=== PATIENT | female | born 1965 | race African-American/Black ===

== ENCOUNTER 2017-04-20 10:47 | Emergency (ER) | payer MEDICAID ==
[~2017-04-20] VITALS: Ht 157.5 cm; Wt 73.0 kg
[~2017-04-20 10:47] MED LIST: VALS40TA4 PO
[2017-04-20] MEDS ORDERED: IBUPROFEN 600MG TABLET PO ONE (11:45)
[2017-04-20 12:12] VITALS: BP 145/89
== END 2017-04-20 15:00 | disposition home or self-care (01) ==
LOC: ER 14:44
DX: S46.911A Strain of unspecified muscle, fascia and tendon at shoulder and upper arm level, right arm, initial encounter (principal); M79.661 Pain in right lower leg; M54.9 Dorsalgia, unspecified; M54.2 Cervicalgia; V43.52XA Car driver injured in collision with other type car in traffic accident, initial encounter; Y93.89 Activity, other specified; Y92.414 Local residential or business street as the place of occurrence of the external cause; F12.90 Cannabis use, unspecified, uncomplicated; I10 Essential (primary) hypertension; K21.9 Gastro-esophageal reflux disease without esophagitis; Z90.710 Acquired absence of both cervix and uterus
CPT/HCPCS: 99283

== ENCOUNTER 2017-09-14 22:06 | Emergency (ER) | payer MEDICAID ==
[~2017-09-14] VITALS: Ht 160 cm; Wt 82.0 kg
[2017-09-14] MEDS ORDERED: MORPHINE SULFATE 4 MG/ML CPJ (NOT FOR IM USE) IV STA (23:03)
[2017-09-14] MEDS ORDERED: ONDANSETRON HCL 4MG/2ML VIAL IV STA (23:03)
[2017-09-14] MEDS ORDERED: LABETALOL HCL 20MG/4ML CARPUJECT IV ONE (23:15)
[2017-09-14] MEDS ORDERED: ASPIRIN 81MG TABLET PO ONE (23:15)
[2017-09-14] MEDS ORDERED: MORPHINE SULFATE 2 MG/ML CPJ (NOT FOR IM USE) IV STA (23:29)
[2017-09-14 23:50] LABS: BASOPHILS % 0.9 % (0.0-2.0); EOSINOPHILS % 1.1 % (0.0-5.0); HEMATOCRIT. 37.4 % (36.0-48.0); HEMOGLOBIN. 12.8 g/dL (12.0-16.0); LYMPHOCYTES % 62.2 % (20.0-50.0); MEAN CORPUSCULAR HEMOGLOBIN 31.3 pg (28.0-32.0); MEAN CORPUSCULAR VOLUME 91.5 fL (81.0-99.0); MEAN PLATELET VOLUME 9.9 fl (7.4-10.4); MONOCYTES % 6.7 % (2.0-8.0); NEUTROPHILS % 29.1 % (40.0-76.0); PLATELET 182 x1000/uL (130-400); RED BLOOD CELL COUNT 4.08 mill/uL (4.2-5.4); RED CELL DISTRIBUTION WIDTH 13.5 % (11.6-14.6)
[2017-09-15] LABS: D-DIMER < 0.19 mg/L FEU (<0.50); PROTHROMBIN TIME 10.1 sec (9.4-11.6)
[2017-09-15 00:14] LABS: CARBON DIOXIDE 21 mEq/L (21-32); CHLORIDE 112 mEq/L (98-107); ETHANOL BLOOD 160 mg/dL
[2017-09-15] MEDS ORDERED: CEFTRIAXONE 1 G PREMIX 50 ML IV ONE (00:15)
[2017-09-15] MEDS ORDERED: AZITHROMYCIN 500 MG in DEXT 5% WATER 250 ML IV ONE (00:15)
[2017-09-15 00:21] LABS: TROPONIN I < 0.02 ng/mL (0.00-0.04)
[2017-09-15 02:23] VITALS: BP 117/81
== END 2017-09-15 02:39 | disposition home or self-care (01) ==
LOC: ER 22:32 → SUPCPDRO 09-15 11:48
DX: I16.0 Hypertensive urgency (principal); I10 Essential (primary) hypertension; R07.9 Chest pain, unspecified; F10.10 Alcohol abuse, uncomplicated; F17.200 Nicotine dependence, unspecified, uncomplicated; F12.10 Cannabis abuse, uncomplicated; Z98.890 Other specified postprocedural states; Z90.710 Acquired absence of both cervix and uterus
CPT/HCPCS: 36415; 71010; 80053; 83605; 83690; 83880; 84484; 85025; 85379; 85610; 87040; 93005; 96365; 96366; 96368; 96375; 99285; G0482; J0456; J0696; J2270; J2405; J3490; Z7610; J7060

== ENCOUNTER 2020-09-12 17:36 | Emergency (ER) | payer MEDICAID, OTHER ==
[~2020-09-12] VITALS: Ht 165.1 cm; Wt 68.0 kg
[2020-09-12 17:41] VITALS: BP 152/91
[2020-09-12 19:13] LABS: CLARITY URINE CLEAR (CLEAR); COLOR URINE YELLOW (YELLOW); KETONES URINE NEGATIVE (NEGATIVE); LEUKOCYTE ESTERASE URINE TRACE (NEGATIVE); NITRITE URINE NEGATIVE (NEGATIVE); OCCULT BLOOD URINE TRACE (NEGATIVE); PH URINE 5.5 (4.5-8.0); PROTEIN URINE NEGATIVE (NEGATIVE); SPECIFIC GRAVITY URINE 1.021 (1.005-1.030)
[2020-09-12 19:13] LABS: BASOPHILS % 0.6 % (0.0-2.0); EOSINOPHILS % 0.9 % (0.0-5.0); HEMATOCRIT. 37.5 % (36.0-48.0); HEMOGLOBIN. 12.7 g/dL (12.0-16.0); LYMPHOCYTES % 54.3 % (20.0-50.0); MEAN CORPUSCULAR HEMOGLOBIN 31.2 pg (28.0-32.0); MEAN CORPUSCULAR VOLUME 92.2 fL (81.0-99.0); MEAN PLATELET VOLUME 9.4 fl (7.4-10.4); MONOCYTES % 6.7 % (2.0-8.0); NEUTROPHILS % 37.5 % (40.0-76.0); PLATELET 238 x1000/uL (130-400); RED BLOOD CELL COUNT 4.06 mill/uL (4.2-5.4); RED CELL DISTRIBUTION WIDTH 14.2 % (11.6-14.6)
[2020-09-12 19:14] LABS: CHLORIDE 110 mEq/L (98-107)
[2020-09-12] MEDS ORDERED: AZITHROMYCIN 500 MG TABLET PO ONE (19:45)
[2020-09-12] MEDS ORDERED: CEFTRIAXONE SODIUM 250 MG/VIAL IM ONE (19:45)
== END 2020-09-12 20:17 | disposition home or self-care (01) ==
LOC: ER 17:36
DX: R30.0 Dysuria (principal); F17.290 Nicotine dependence, other tobacco product, uncomplicated; I10 Essential (primary) hypertension; Z90.710 Acquired absence of both cervix and uterus
CPT/HCPCS: 36415; 80053; 81003; 85025; 93005; 96372; 99284; 99406; J0696

== ENCOUNTER 2020-10-14 07:07 | Emergency (ER) | payer MEDICAID, OTHER ==
[~2020-10-14] VITALS: Ht 157.5 cm; Wt 75.4 kg
[2020-10-14] MEDS ORDERED: OXYCODONE HCL/ACETAMINOPHEN 5/325MG TABLET PO ONE (08:00)
[2020-10-14] MEDS ORDERED: KETOROLAC 60MG/2ML VIAL IM ONE (08:00)
[2020-10-14 08:55] VITALS: BP 139/88
== END 2020-10-14 09:04 | disposition home or self-care (01) ==
LOC: ER 07:07
DX: G89.29 Other chronic pain (principal); M54.5 Low back pain; I10 Essential (primary) hypertension
CPT/HCPCS: 96372; 99283; J1885

== ENCOUNTER 2021-07-16 05:53 | Emergency (ER) | payer MEDICAID ==
[~2021-07-16] VITALS: Ht 160 cm; Wt 72.0 kg
[2021-07-16 06:20] VITALS: BP 140/89
[2021-07-16] MEDS ORDERED: KETOROLAC 60MG/2ML VIAL IM ONE (07:00)
[2021-07-16] MEDS ORDERED: ACETAMINOPHEN WITH CODEINE 300/30MG TABLET PO ONE (07:00)
[2021-07-16] MEDS ORDERED: OXYC-100 PO (07:01)
[2021-07-16] MEDS ORDERED: AMOX-424 PO (07:08)
== END 2021-07-16 07:19 | disposition home or self-care (01) ==
LOC: ER 05:53
DX: M54.89 Other dorsalgia (principal); I10 Essential (primary) hypertension
CPT/HCPCS: 96372; 99283; J1885

== ENCOUNTER 2021-12-18 07:35 | Emergency (ER) | payer MEDICAID, OTHER ==
[~2021-12-18] VITALS: Ht 165.1 cm; Wt 75.0 kg
[~2021-12-18 07:35] MED LIST changes: +AMOX-424 PO; +OXYC-100 PO
[2021-12-18] MEDS ORDERED: METH-773 MT (08:06)
[2021-12-18] MEDS ORDERED: IBUP-2029 MT (08:06)
[2021-12-18 08:14] VITALS: BP 152/81
[2021-12-18] MEDS ORDERED: KETOROLAC 60MG/2ML VIAL IM ONE (08:15)
== END 2021-12-18 08:28 | disposition home or self-care (01) ==
LOC: ER 07:35
DX: M54.50 Low back pain, unspecified (principal); G89.29 Other chronic pain; I10 Essential (primary) hypertension; F17.210 Nicotine dependence, cigarettes, uncomplicated
CPT/HCPCS: 96372; 99283; J1885

== ENCOUNTER 2022-01-04 13:27 | Emergency (ER) | payer OTHER ==
[~2022-01-04] VITALS: Ht 160 cm; Wt 69.0 kg
[~2022-01-04 13:27] MED LIST changes: +IBUP-2029 MT; +METH-773 MT
[2022-01-04] MEDS ORDERED: IBUPROFEN 600MG TABLET PO ONE (13:45)
[2022-01-04] MEDS ORDERED: BACITRACIN ZINC OINT UDPKT TOP ONE (13:45)
[2022-01-04] MEDS ORDERED: TETANUS, DIPHTHERIA, PERTUSSIS VAC/PF 0.5ML (>10YR OLD) IM ONE (13:45)
[2022-01-04] MEDS ORDERED: AMOX-424 PO (13:52)
[2022-01-04] MEDS ORDERED: IBUP-2029 PO (13:52)
[2022-01-04 14:13] VITALS: BP 126/84
== END 2022-01-04 14:48 | disposition home or self-care (01) ==
LOC: ER 13:38
DX: S71.151A Open bite, right thigh, initial encounter (principal); W54.0XXA Bitten by dog, initial encounter; Y93.89 Activity, other specified; Y92.89 Other specified places as the place of occurrence of the external cause; Y99.8 Other external cause status; I10 Essential (primary) hypertension; Z79.899 Other long term (current) drug therapy
CPT/HCPCS: 90471; 90715; 99283

== ENCOUNTER 2022-01-08 13:39 | Emergency (ER) | payer OTHER ==
[~2022-01-08] VITALS: Ht 170.2 cm; Wt 82.0 kg
[~2022-01-08 13:39] MED LIST changes: +IBUP-2029 PO
[2022-01-08 13:43] VITALS: BP 117/79
== END 2022-01-08 13:57 | disposition home or self-care (01) ==
LOC: ER 13:39
DX: Z48.00 Encounter for change or removal of nonsurgical wound dressing (principal); S71.151D Open bite, right thigh, subsequent encounter; W54.0XXD Bitten by dog, subsequent encounter; I10 Essential (primary) hypertension; Z90.710 Acquired absence of both cervix and uterus; Z98.890 Other specified postprocedural states
CPT/HCPCS: 99281

== ENCOUNTER 2023-03-31 07:11 | Emergency (ER) | payer OTHER ==
[~2023-03-31] VITALS: Ht 162.6 cm; Wt 70.5 kg
[2023-03-31 07:58] LABS: BASOPHILS % 0.8 % (0.0-2.0); EOSINOPHILS % 1.2 % (0.0-5.0); HEMATOCRIT. 37.8 % (36.0-48.0); HEMOGLOBIN. 12.5 g/dL (12.0-16.0); LYMPHOCYTES % 42.8 % (20.0-50.0); MEAN CORPUSCULAR HEMOGLOBIN 29.8 pg (28.0-32.0); MEAN CORPUSCULAR VOLUME 90.1 fL (81.0-99.0); MEAN PLATELET VOLUME 9.4 fl (7.4-10.4); MONOCYTES % 7.2 % (2.0-8.0); PLATELET 227 x1000/uL (130-400); RED CELL DISTRIBUTION WIDTH 13.7 % (11.6-14.6)
[2023-03-31 08:29] LABS: CLARITY URINE CLEAR (CLEAR); COLOR URINE YELLOW (YELLOW); KETONES URINE NEGATIVE (NEGATIVE); LEUKOCYTE ESTERASE URINE TRACE (NEGATIVE); NITRITE URINE NEGATIVE (NEGATIVE); OCCULT BLOOD URINE TRACE (NEGATIVE); PROTEIN URINE NEGATIVE (NEGATIVE); SPECIFIC GRAVITY URINE 1.009 (1.005-1.030); UROBILINOGEN URINE 0.2 E.U./dL (0.2-1.0)
[2023-03-31 09:40] LABS: CHLORIDE 110 mEq/L (98-107)
[2023-03-31 09:46] LABS: HCG SCREEN NEGATIVE
[2023-03-31] MEDS ORDERED: FAMOTIDINE 20MG/2ML VIAL IV STA (10:25)
[2023-03-31] MEDS ORDERED: VISCOUS LIDOCAINE 2% 15 ML UDC PO STA (10:25)
[2023-03-31] MEDS ORDERED: MAGNESIUM/ALUMINUM HYDROXIDE/SIMETHICONE 30ML UDC PO STA (10:25)
[2023-03-31] MEDS ORDERED: DICYCLOMINE 10 MG/5 ML ORAL SYR PO STA (10:25)
[2023-03-31] MEDS ORDERED: OMEP20TA23 PO (10:39)
[2023-03-31 11:00] VITALS: BP 133/89
[2023-03-31] MEDS ORDERED: DICYCLOMINE 10 MG/5 ML ORAL SYR PO SCH (11:15)
== END 2023-03-31 11:32 | disposition home or self-care (01) ==
LOC: ER 07:11
DX: R10.13 Epigastric pain (principal); I10 Essential (primary) hypertension; Z98.890 Other specified postprocedural states
CPT/HCPCS: 36415; 74176; 80053; 81003; 83690; 84484; 84703; 85025; 93005; 96374; 99285; J3490; Z7610

== ENCOUNTER 2023-12-27 05:15 | Emergency (ER) | payer OTHER ==
[~2023-12-27] VITALS: Ht 162.6 cm; Wt 71.0 kg
[~2023-12-27 05:15] MED LIST changes: +OMEP20TA23 PO
[2023-12-27 05:22] VITALS: O2SAT 98
[2023-12-27 05:58] LABS: BASOPHILS % 0.6 % (0.0-2.0); HEMATOCRIT. 40.3 % (36.0-48.0); MEAN CORPUSCULAR HEMOGLOBIN 29.8 pg (28.0-32.0); MEAN CORPUSCULAR HGB CONC 32.3 g/dL (31.0-37.0); MEAN CORPUSCULAR VOLUME 92.3 fL (81.0-99.0); MEAN PLATELET VOLUME 9.8 fl (7.4-10.4); NEUTROPHILS % 45.4 % (40.0-76.0); PLATELET 244 x1000/uL (130-400); RED BLOOD CELL COUNT 4.37 mill/uL (4.2-5.4); RED CELL DISTRIBUTION WIDTH 14.7 % (11.6-14.6); WHITE BLOOD COUNT 4.6 x1000/uL (4.5-11.0)
[2023-12-27 06:21] LABS: ALANINE AMINOTRANSFERASE 16 IU/L (10-49); ALBUMIN 4.6 g/dL (3.2-4.8); ASPARTATE AMINOTRANSFERASE 18 IU/L (<34); BILIRUBIN TOTAL 0.8 mg/dL (0.1-1.0); CALCIUM 9.6 mg/dL (8.7-10.4); CARBON DIOXIDE 27 mEq/L (21-32); CHLORIDE 107 mEq/L (98-107); CREATININE 0.8 mg/dL (0.6-1.0); GLUCOSE 107 mg/dL (70-105); POTASSIUM 3.8 mEq/L (3.5-5.1); PROTEIN TOTAL 8.3 g/dL (6.0-8.3); SODIUM 140 mEq/L (136-145); TROPONIN I HIGH SENSITIVITY 8 ng/L (3.0-34); UREA NITROGEN BLOOD 12 mg/dL (9-23)
[2023-12-27 07:22] LABS: CLARITY URINE CLEAR (CLEAR); COLOR URINE YELLOW (YELLOW); GLUCOSE URINE NEGATIVE (NEGATIVE); PROTEIN URINE NEGATIVE (NEGATIVE); SPECIFIC GRAVITY URINE 1.019 (1.005-1.030)
[2023-12-27] MEDS ORDERED: DICYCLOMINE 10 MG/5 ML ORAL SYR PO STA (07:22)
[2023-12-27] MEDS ORDERED: MAGNESIUM/ALUMINUM HYDROXIDE/SIMETHICONE 30ML UDC PO STA (07:22)
[2023-12-27] MEDS ORDERED: ONDANSETRON 4MG ODT PO STA (07:22)
[2023-12-27 07:23] LABS: KETONES URINE NEGATIVE (NEGATIVE); NITRITE URINE NEGATIVE (NEGATIVE); OCCULT BLOOD URINE TRACE (NEGATIVE)
[2023-12-27 07:24] LABS: LEUKOCYTE ESTERASE URINE 1+ (NEGATIVE)
[2023-12-27 07:26] LABS: SQUAMOUS EPITHELIAL CELL URINE 1+ /lpf (RARE/1+)
[2023-12-27] MEDS ORDERED: OMEPRAZOLE 20MG CAPSULE EXTENDED RELEASE PO ONE (07:30)
[2023-12-27 07:31] LABS: BACTERIA URINE 1+; RBC URINE 0-2 /hpf (0-2)
[2023-12-27] MEDS ORDERED: OMEP20TA23 PO (08:41)
[2023-12-27 10:10] VITALS: BP 138/91; PULSE 64; RESP 18; TEMP 98
== END 2023-12-27 10:11 | disposition home or self-care (01) ==
LOC: ER 05:26
DX: K21.9 Gastro-esophageal reflux disease without esophagitis (principal); I10 Essential (primary) hypertension; Z98.890 Other specified postprocedural states; Z90.710 Acquired absence of both cervix and uterus; Z79.899 Other long term (current) drug therapy
CPT/HCPCS: 99284; 80053; 81003; 83690; 85025; 84484; 36415; 93005; Q0162

== ENCOUNTER 2024-02-07 11:18 | Emergency (ER) | payer OTHER ==
[~2024-02-07] VITALS: Ht 165.1 cm; Wt 65.0 kg
[2024-02-07 11:23] VITALS: BP 151/93; PULSE 87; RESP 20; TEMP 98.4; O2SAT 100
[2024-02-07] MEDS: KETOROLAC 15MG/ML VIAL IM ONE (13:15)
[2024-02-07] MEDS ORDERED: NAPR-681 MT (14:07)
== END 2024-02-07 14:30 | disposition home or self-care (01) ==
LOC: ER 11:18
DX: S90.31XA Contusion of right foot, initial encounter (principal); I25.2 Old myocardial infarction; I10 Essential (primary) hypertension; E78.00 Pure hypercholesterolemia, unspecified; Z98.890 Other specified postprocedural states; W22.09XA Striking against other stationary object, initial encounter; Y93.89 Activity, other specified; Y92.89 Other specified places as the place of occurrence of the external cause; Y99.8 Other external cause status
CPT/HCPCS: 73630; 99283